=== PATIENT | male | born 1940 | race Two or more races ===

== ENCOUNTER → 2019-03-21 | Outpatient (CLI) | payer MEDICAID ==
[~2019-03-21] MED LIST: ASPI81TA45 PO; ATOR-2 PO; LOSA50TA14 PO; METF500T17 PO; REGADENOSON 0.4 MG/5 ML SYRINGE ONE; TAMS-11 PO
== END | disposition home or self-care (01) ==
LOC: CFH 07:25
PROVIDERS: ATTEND Internal Medicine Cardiovascular Disease
DX: I10 Essential (primary) hypertension (principal); Z95.0 Presence of cardiac pacemaker
CPT/HCPCS: 78452; 93017; A9502; J2785